=== PATIENT | female | born 1970 | race African-American/Black ===

== ENCOUNTER 2017-03-02 16:13 | Inpatient (IN) | payer OTHER ==
--- NOTE | ~2017-03-02 | HP ---
History And Physical [facility] [address] [place]. [address] NAME: JIMMY DALE : 70 STATUS : ADM Janna PAT#: [id number] AGE: 46 ADM/REG DATE : 03/02/17 MR#: [id number] REPORT SERV DATE: 03/03/17 DICTATED BY: BRADY REED III DATE: 03/03/17 REPORT STATUS : Draft TRANSCRIBED BY: LOI DATE: 03/03/17 DATE OF ADMISSION: 03/02/2017 HISTORY OF PRESENT ILLNESS: Mrs. Jimmy Dale is a 46-year-old -[place] female from [place], [place], admitted to [facility] for evaluation of chest pain and an elevated troponin I level. The patient had been in her usual state of health until approximately one week prior to this admission. At that time, the patient had the onset of dull substernal and left precordial chest pain radiating to her left shoulder and hand. The patient's chest pains have lasted up to 1 minute in duration. The patient's chest pains were accompanied by dyspnea, diaphoresis, nausea, and lightheadedness. The patient denied any associated vomiting. The patient denied precipitating factors. The patient's chest pains have been exacerbated by deep inspiration. The patient denied relation to exertion, emotional upset, positional change and oral intake. The patient stated that her chest pains were relieved by local pressure and sublingual nitroglycerin. The patient denied trying antacids or heating pad. The patient has no history of migraine headaches or symptoms suggestive of Raynaud's phenomenon. The patient has noted an increase in the frequency and duration of her chest pains. The patient denied any change in the intensity of her chest pains. The patient was subsequently admitted to [facility]. According to the patient, serial cardiac biomarkers demonstrated evidence of myocardial necrosis. The patient subsequently underwent transradial cardiac catheterization. According to the patient, coronary angiography demonstrated angiographically insignificant epicardial coronary artery disease. The patient was subsequently discharged on medical therapy. The patient's chest pains have persisted. The patient was subsequently seen in the [facility] Emergency Room. A 12-lead electrocardiogram demonstrated sinus rhythm with lateral nonspecific T-wave abnormalities. The patient's troponin I level was 0.32. A CTA of the chest demonstrated no acute findings. There was a 2.5 mm right upper lobe nodule. The patient was subsequently admitted for further evaluation. The patient complained of dyspnea on exertion, but could not quantitate her functional limitation. The patient also complained of two-pillow orthopnea. The patient denied paroxysmal nocturnal dyspnea, sacral edema, left pedal edema, palpitations, syncope, and hip claudication. The patient has no history of rheumatic fever or cardiac murmur. The patient's documented coronary artery disease risk factors include diabetes mellitus, obesity, hyperlipoproteinemia, and hypertension. PAST MEDICAL HISTORY: 1. Diabetes mellitus. 2. Morbid obesity. 3. Hyperlipoproteinemia. 4. Hypertension. 5. OU cataracts. 6. OU detached retinas. OPERATIVE PROCEDURES: 1. Status post right knvpl-wqk-qfat amputation for a right foot infection. 2. Status post bilateral tubal ligation. History And Physical [address] [address] NAME: JIMMY DALE : 70 STATUS : ADM Janna PAT#: [id number] AGE: 46 ADM/REG DATE : 03/02/17 MR#: [id number] REPORT SERV DATE: 03/03/17 DICTATED BY: BRADY REED III DATE: 03/03/17 REPORT STATUS : Draft TRANSCRIBED BY: LOI DATE: 03/03/17 3. Status post right knee arthroscopy. ALLERGIES: 1. LISINOPRIL. 2. TRIMETHOPRIM/SULFAMETHOXAZOLE. MEDICATIONS: 1. Aspirin 81 mg p.o. daily. 2. Clopidogrel 75 mg p.o. daily. 3. Carvedilol 6.25 mg p.o. b.i.d. 4. Losartan 50 mg p.o. daily. 5. Atorvastatin 40 mg p.o. at bedtime. 6. Hydrochlorothiazide 25 mg p.o. daily. 7. Amlodipine 5 mg p.o. daily. 8. Beclomethasone MDI 2 puffs q.12 hours. 9. Gabapentin 600 mg p.o. t.i.d. 10.Sertraline 100 mg p.o. daily. 11.Humulin insulin 70 units subcu at bedtime. 12.Nitroglycerin 0.4 mg sublingual, p.r.n. chest pain. FAMILY HISTORY: Positive for hypertension, stroke, diabetes mellitus, kidney disease, anemia, arthritis, and mental illness. Negative for myocardial infarction, seizures, cancer, and liver disease. SOCIAL HISTORY: The patient discontinued alcohol use approximately 4 months prior to this admission. The patient has no history of tobacco use. PHYSICAL EXAMINATION: GENERAL: Physical examination demonstrated an alert, morbidly obese, older -Q[place] female in no acute distress. VITAL SIGNS: Demonstrated a temperature of 99.8 orally, respiratory rate of 20 breaths per minute, and a blood pressure of 153/67 mmHg with a heart rate of 89 beats per minute. SKIN: Warm and dry. There was a well-healed right yarfw-slq-niap amputation. There were diffuse bilateral flank and abdominal striae. NECK: Supple and nontender. There was full range of motion without appreciable lymphadenopathy or thyromegaly. There was no jugular venous distention at 90 degrees. There were no carotid bruits. BACK: Examination of the back demonstrated left costovertebral angle tenderness. There was no spinal or right costovertebral angle tenderness. CHEST: Examination of the chest demonstrated that it was clear to auscultation. There were no crackles, rhonchi, wheezes, or pleural rubs. There was symmetrical expansion of the chest. CARDIAC: Cardiac examination demonstrated a nonpalpable apical impulse. There was a regular rhythm and rate without murmur, rub, gallop, or mid systolic click. There were no thrills or heaves. ABDOMEN: Examination of the abdomen demonstrated that it was obese, soft, and markedly protuberant. There was no appreciable hepatosplenomegaly or masses. Bowel sounds were History And Physical [address] [address] NAME: JIMMY DALE : 70 STATUS : ADM Janna PAT#: [id number] AGE: 46 ADM/REG DATE : 03/02/17 MR#: [id number] REPORT SERV DATE: 03/03/17 DICTATED BY: BRADY REED III DATE: 03/03/17 REPORT STATUS : Draft TRANSCRIBED BY: LOI DATE: 03/03/17 intact. There were no abdominal bruits. EXTREMITIES: Examination of the extremities demonstrated they were symmetrical, with the exception of a right below the knee amputation. There was decreased range of motion. There was no cyanosis, clubbing, or edema. Pulses were 2+ and equal at the radial arteries. The left dorsalis pedis and posterior tibial pulses were 2+. ASSESSMENT: Mrs. Jimmy Dale is a 46-year-old -Q[place] female with four other risk factors for coronary atherosclerotic disease (i.e. diabetes mellitus, morbid obesity, hyperlipoproteinemia, hypertension), history of a peg-IJ-htpjdks elevation myocardial infarction and a history of angiographically insignificant epicardial coronary artery disease (January 2017); who now presents with progressive atypical chest pains and a minimally elevated troponin I level. The patient is admitted for cardiovascular risk stratification. Specifically, the patient will undergo an intravenous regadenoson PET scan. Further, the cardiac catheterization report will be obtained from [facility]. EPHRAIM/LOI Brady Reed III, M.D., [facility] [place] / [id number] CC: Brady Reed III, M.D., [facility] [place]
[2017-03-02 17:45] LABS: BASOPHILS 0.1 %; BASOPHILS ABSOLUTE 0.01 10/3/uL (0.0-0.16); EOSINOPHILS 1.1 %; EOSINOPHILS ABSOLUTE 0.08 10/3/uL (0.0-0.53); HEMATOCRIT 34.4 % (36.0-48.0); HEMOGLOBIN 10.8 g/dL (12.0-16.0); IMMATURE GRANULOCYTES 0.1 %; IMMATURE GRANULOCYTES ABSOLUTE 0.01 10/3/uL (0.0-0.11); LYMPHOCYTES 17.5 %; LYMPHOCYTES ABSOLUTE 1.28 10/3/uL (0.67-4.30); MEAN CORPUS HGB CONC 31.4 g/dL (32.0-36.0); MEAN CORPUSCULAR HEMOGLOB 25.2 pg (26.0-34.0); MEAN PLATELET VOLUME 10.7 fL (9.2-13.0); MONOCYTES 8.6 %; MONOCYTES ABSOLUTE 0.63 10/3/uL (0.21-1.20); NEUTROPHILS 72.6 %; NEUTROPHILS ABSOLUTE 5.32 10/3/uL (2.02-8.40); PLATELET COUNT 340 10/3/uL (150-400); RBC DISTRIBUTION WIDTH 16.2 % (12.0-16.0); RED CELL COUNT 4.29 10/6/uL (4.0-5.6); WHITE BLOOD CELLS 7.3 10/3/uL (4.5-10.5)
[2017-03-02 17:46] LABS: MANUAL DIFF NO %; MEAN CORPUSCULAR VOLUME 80.2 fL (80-100)
[2017-03-02 17:51] LABS: INTERNATIONAL NORMAL RATI 1.1 UNITS (-); PARTIAL THROMBO TIME 25.2 SEC (22.5-37.2); PROTIME (NOT ORD) 13.7 SEC (12.0-14.5)
[2017-03-02 18:03] LABS: ALBUMIN 3.8 G/DL (3.5-5.0); CALCIUM, SERUM 9.5 MG/DL (8.5-10.4); CHLORIDE, SERUM 107 MMOL/L (96-112); CO2 (CARBON DIOXIDE) 27 MMOL/L (24-34); CREATININE 0.82 MG/DL (0.55-1.02); GFR AFRICAN AMERICAN 99 ML/MIN (>=60); GFR NON AFRICAN AMERICAN 86 ML/MIN (>=60); SGOT(AST) 16 U/L (5-40); SGPT(ALT) 18 U/L (5-65); SODIUM, SERUM 141 MMOL/L (135-148); TOTAL BILIRUBIN 0.5 MG/DL (0-1.2); TOTAL PROTEIN 8.7 G/DL (6.0-8.5)
[2017-03-02 18:04] LABS: ALKALINE PHOSPHATASE 113 U/L (45-117); BUN (BLOOD UREA NITROGEN) 18 MG/DL (6-23); CHEST PAIN PROFILE TAT 0 Hrs 23 Mins; DIRECT BILIRUBIN < 0.1 MG/DL (0.0-0.4); GLUCOSE, SERUM 114 MG/DL (60-99); INDIRECT BILIRUBIN(NOT ORDER) 0.4 MG/DL (0.1-0.9); TROPONIN I 0.32 NG/ML (<0.05)
[2017-03-02] MEDS ORDERED: HCTZ25B PO (18:52)
[2017-03-02] MEDS ORDERED: HUMULIN R500 UNIT/1 SC (18:53)
[2017-03-02] MEDS ORDERED: QVAR80 MCG INH (18:53)
[2017-03-02] MEDS ORDERED: PLAVIX PO (18:53)
[2017-03-02] MEDS ORDERED: ZOL100 PO (18:53)
[2017-03-02] MEDS ORDERED: COREG6 PO (18:53)
[2017-03-02] MEDS ORDERED: NORV5 PO (18:53)
[2017-03-02] MEDS ORDERED: HALF81 PO (18:54)
[2017-03-02] MEDS ORDERED: COZ50 PO (18:54)
[2017-03-02] MEDS ORDERED: NEUR600 PO (18:54)
[2017-03-02] MEDS ORDERED: LIPITOR40 PO (18:54)
[2017-03-02 23:07] LABS: BASOPHILS 0.2 %; BASOPHILS ABSOLUTE 0.01 10/3/uL (0.0-0.16); EOSINOPHILS 1.3 %; EOSINOPHILS ABSOLUTE 0.08 10/3/uL (0.0-0.53); IMMATURE GRANULOCYTES 0.2 %; IMMATURE GRANULOCYTES ABSOLUTE 0.01 10/3/uL (0.0-0.11); LYMPHOCYTES 24.8 %; LYMPHOCYTES ABSOLUTE 1.49 10/3/uL (0.67-4.30); MEAN CORPUS HGB CONC 31.3 g/dL (32.0-36.0); MEAN PLATELET VOLUME 10.9 fL (9.2-13.0); MONOCYTES 7.8 %; MONOCYTES ABSOLUTE 0.47 10/3/uL (0.21-1.20); NEUTROPHILS 65.7 %; NEUTROPHILS ABSOLUTE 3.94 10/3/uL (2.02-8.40); PLATELET COUNT 345 10/3/uL (150-400); RBC DISTRIBUTION WIDTH 16.5 % (12.0-16.0)
[2017-03-02 23:09] LABS: MANUAL DIFF NO %
[2017-03-02 23:25] LABS: PARTIAL THROMBO TIME 51.3 SEC (22.5-37.2)
[2017-03-03 00:01] LABS: INTERNATIONAL NORMAL RATI 1.2 UNITS (-)
[2017-03-03 06:01] LABS: BASOPHILS 0.4 %; BASOPHILS ABSOLUTE 0.02 10/3/uL (0.0-0.16); EOSINOPHILS 1.6 %; EOSINOPHILS ABSOLUTE 0.09 10/3/uL (0.0-0.53); HEMATOCRIT 30.7 % (36.0-48.0); HEMOGLOBIN 9.6 g/dL (12.0-16.0); IMMATURE GRANULOCYTES 0.4 %; IMMATURE GRANULOCYTES ABSOLUTE 0.02 10/3/uL (0.0-0.11); LYMPHOCYTES 28.9 %; LYMPHOCYTES ABSOLUTE 1.63 10/3/uL (0.67-4.30); MEAN CORPUS HGB CONC 31.3 g/dL (32.0-36.0); MEAN CORPUSCULAR HEMOGLOB 25.3 pg (26.0-34.0); MONOCYTES 8.7 %; MONOCYTES ABSOLUTE 0.49 10/3/uL (0.21-1.20); NEUTROPHILS ABSOLUTE 3.39 10/3/uL (2.02-8.40); PLATELET COUNT 300 10/3/uL (150-400); RBC DISTRIBUTION WIDTH 16.5 % (12.0-16.0); RED CELL COUNT 3.79 10/6/uL (4.0-5.6); WHITE BLOOD CELLS 5.6 10/3/uL (4.5-10.5)
[2017-03-03 06:02] LABS: MANUAL DIFF NO %
[2017-03-03 06:17] LABS: CHOL/HDL RATIO(NOT ORDER) 4.5 (0-5)
[2017-03-04 06:44] LABS: BASOPHILS 0.3 %; BASOPHILS ABSOLUTE 0.02 10/3/uL (0.0-0.16); EOSINOPHILS 2.7 %; EOSINOPHILS ABSOLUTE 0.17 10/3/uL (0.0-0.53); HEMATOCRIT 31.8 % (36.0-48.0); HEMOGLOBIN 9.8 g/dL (12.0-16.0); LYMPHOCYTES 33.2 %; LYMPHOCYTES ABSOLUTE 2.11 10/3/uL (0.67-4.30); MEAN CORPUS HGB CONC 30.8 g/dL (32.0-36.0); MEAN CORPUSCULAR HEMOGLOB 24.6 pg (26.0-34.0); MEAN CORPUSCULAR VOLUME 79.9 fL (80-100); MEAN PLATELET VOLUME 10.7 fL (9.2-13.0); MONOCYTES 10.4 %; MONOCYTES ABSOLUTE 0.66 10/3/uL (0.21-1.20); NEUTROPHILS 53.4 %; PLATELET COUNT 324 10/3/uL (150-400); RBC DISTRIBUTION WIDTH 16.2 % (12.0-16.0); RED CELL COUNT 3.98 10/6/uL (4.0-5.6); WHITE BLOOD CELLS 6.4 10/3/uL (4.5-10.5)
[2017-03-04 06:49] LABS: CALCIUM, SERUM 9.2 MG/DL (8.5-10.4); CHLORIDE, SERUM 109 MMOL/L (96-112); CO2 (CARBON DIOXIDE) 26 MMOL/L (24-34); CREATININE 0.76 MG/DL (0.55-1.02); GFR AFRICAN AMERICAN 109 ML/MIN (>=60); GFR NON AFRICAN AMERICAN 94 ML/MIN (>=60); POTASSIUM, SERUM 3.7 MMOL/L (3.5-5.3); SODIUM, SERUM 142 MMOL/L (135-148)
[2017-03-04 06:50] LABS: BUN (BLOOD UREA NITROGEN) 11 MG/DL (6-23); GLUCOSE, SERUM 84 MG/DL (60-99); MANUAL DIFF NO %
== END 2017-03-04 17:15 | disposition home or self-care (01) | DRG 303 ==
LOC: ER 16:13 → 5NO 21:27
PROVIDERS: Emergency Medicine; Internal Medicine Cardiovascular Disease
DX: I25.10 Atherosclerotic heart disease of native coronary artery without angina pectoris (principal); Z68.41 Body mass index [BMI] 40.0-44.9, adult; I10 Essential (primary) hypertension; E11.9 Type 2 diabetes mellitus without complications; E66.01 Morbid (severe) obesity due to excess calories; E78.5 Hyperlipidemia, unspecified; Z89.511 Acquired absence of right leg below knee; Z98.51 Tubal ligation status; Z79.4 Long term (current) use of insulin; I25.2 Old myocardial infarction
CPT/HCPCS: 71010; 71275; 78492; 80048; 80061; 80076; 82962; 83690; 83735; 84460; 84484; 85025; 85610; 85730; 93005; 93017; 94640; 99285; A9270-GY; A9555; J2785; Q9967